=== PATIENT | male | born 1955 | race Caucasian/White ===

== ENCOUNTER 2019-01-28 17:53 | Inpatient (IN) | payer BC ==
[~2019-01-28] VITALS: Ht 193 cm; Wt 86.2 kg
[~2019-01-28 17:53] MED LIST: EXTRA STRENGTH500 MG
[2019-01-28] MEDS ORDERED: LISI20 PO (18:02)
[2019-01-28 18:33] LABS: BASOPHILS ABSOLUTE AUTO 0.01 K/mm3 (0.00-0.23); BASOPHILS PERCENT AUTO 0 % (0-2); EOSINOPHILS ABSOLUTE AUTO 0.09 K/mm3 (0.00-0.68); EOSINOPHILS PERCENT AUTO 1 % (0-6); Hematocrit 35.8 % (37.0-53.0); Hemoglobin 11.3 g/dL (13.5-17.5); IMMATURE GRAN ABSOLUTE AUTO 0.04 K/mm3 (0.00-0.10); IMMATURE GRAN PERCENT AUTO 1 % (0-1); LYMPHOCYTES ABSOLUTE AUTO 1.11 K/mm3 (0.84-5.20); LYMPHOCYTES PERCENT AUTO 15 % (21-46); MONOCYTES ABSOLUTE AUTO 0.78 K/mm3 (0.16-1.47); MONOCYTES PERCENT AUTO 11 % (4-13); Mean Corpuscular HGB 20.2 pg (26.0-34.0); Mean Corpuscular HGB Conc 31.6 g/dL (31.5-36.5); Mean Corpuscular Volume 64 fL (80-100); Mean Platelet Volume 9.7 fL (9.1-12.4); NEUTROPHILS ABSOLUTE AUTO 5.25 K/mm3 (1.96-9.15); NEUTROPHILS PERCENT AUTO 72 % (41-73); Platelet Count 317 K/mm3 (150-400); RDW Coefficient Variation 14.2 % (11.7-14.2); RDW Standard Deviation 31.6 fL (35.1-46.3); White Blood Cell Count 7.28 K/mm3 (4.00-11.30)
[2019-01-28 18:38] LABS: Source, Urine Clean Catch
[2019-01-28 18:41] LABS: Blood, Urine 2+ (Neg); Glucose Qualitative, Urine Neg (Neg); Ketones, Urine 2+ (Neg); Leukocyte Esterase, Urine 1+ (Neg); Nitrite, Urine Neg (Neg); Protein, Urine 3+ (Neg); Urobilinogen, Urine 2+ (Normal)
[2019-01-28 18:46] LABS: Bilirubin, Urine 1+ (Neg)
[2019-01-28 18:47] LABS: Appearance, Urine Clear (Clear); Color, Urine Yellow (P-Yellow)
[2019-01-28 18:50] LABS: Hyaline Casts 0-2 /lpf (0-2)
[2019-01-28 18:51] LABS: Bacteria Few /hpf; Mucus Mod (0-Heavy); Squamous Epithelial Cells Few /hpf (Few)
[2019-01-28 18:57] LABS: Alanine Aminotransfer (ALT/SGP 38 U/L (12-78); Albumin, Blood 3.7 g/dL (3.4-5.0); Albumin/Globulin Ratio 0.8 (0.8-1.8); Alk Phos 186 U/L (50-136); Anion Gap 13 mmol/L (6-16); Aspartate Aminotrans (AST/SGOT 42 U/L (12-37); Bilirubin, Total 0.7 mg/dL (0.1-1.0); Blood Urea Nitrogen 13 mg/dL (8-24); CO2, Blood 20 mmol/L (21-32); Calcium, Blood 8.9 mg/dL (8.5-10.1); Chloride, Blood 98 mmol/L (98-108); Creatinine, Blood 0.81 mg/dL (0.60-1.20); Globulin, Blood 4.5 g/dL (2.2-4.0); Glomerular Filtration Rate >60 (60-); Glucose, Blood 103 mg/dL (70-99); Potassium, Blood 3.7 mmol/L (3.5-5.5); Sodium, Blood 131 mmol/L (136-145); Total Protein, Blood 8.2 g/dL (6.4-8.2)
[2019-01-28] MEDS ORDERED: MELATONIN10 M2 PO (20:10)
[2019-01-28] MEDS ORDERED: CETI5 PO (23:17)
--- NOTE | 2019-01-29 04:17 | NUR ---
SHIFT SUMMARY. NO ACUTE EVENTS OVERNIGHT. VSS. PATIENT SBA TO BATHROOM, HELP WITH IV POLE AND LINE. PATIENT VERY PLEASANT AND COPING WELL WITH HOSPITAL VISIT AT THIS TIME. PATIENT INTERESTED IN SPIRITUAL CARE VISIT.
[2019-01-29 05:01] LABS: BASOPHILS ABSOLUTE AUTO 0.01 K/mm3 (0.00-0.23); BASOPHILS PERCENT AUTO 0 % (0-2); EOSINOPHILS PERCENT AUTO 2 % (0-6); Hematocrit 34.5 % (37.0-53.0); Hemoglobin 10.6 g/dL (13.5-17.5); IMMATURE GRAN ABSOLUTE AUTO 0.04 K/mm3 (0.00-0.10); IMMATURE GRAN PERCENT AUTO 1 % (0-1); LYMPHOCYTES ABSOLUTE AUTO 0.96 K/mm3 (0.84-5.20); LYMPHOCYTES PERCENT AUTO 16 % (21-46); MONOCYTES ABSOLUTE AUTO 0.66 K/mm3 (0.16-1.47); MONOCYTES PERCENT AUTO 11 % (4-13); Mean Corpuscular HGB 19.5 pg (26.0-34.0); Mean Corpuscular HGB Conc 30.7 g/dL (31.5-36.5); Mean Corpuscular Volume 64 fL (80-100); Mean Platelet Volume 9.3 fL (9.1-12.4); NEUTROPHILS ABSOLUTE AUTO 4.09 K/mm3 (1.96-9.15); NEUTROPHILS PERCENT AUTO 70 % (41-73); Platelet Count 233 K/mm3 (150-400); RDW Coefficient Variation 14.4 % (11.7-14.2); RDW Standard Deviation 31.2 fL (35.1-46.3); Red Blood Cell Count 5.43 M/mm3 (4.30-5.90); White Blood Cell Count 5.86 K/mm3 (4.00-11.30)
[2019-01-29 05:30] LABS: Alanine Aminotransfer (ALT/SGP 34 U/L (12-78); Albumin, Blood 3.2 g/dL (3.4-5.0); Albumin/Globulin Ratio 0.8 (0.8-1.8); Alk Phos 158 U/L (50-136); Anion Gap 8 mmol/L (6-16); Aspartate Aminotrans (AST/SGOT 35 U/L (12-37); Bilirubin, Total 0.7 mg/dL (0.1-1.0); Blood Urea Nitrogen 15 mg/dL (8-24); Bun/Creatinine Ratio 19.6 (12.0-20.0); CO2, Blood 25 mmol/L (21-32); Calcium, Blood 8.6 mg/dL (8.5-10.1); Chloride, Blood 98 mmol/L (98-108); Creatinine, Blood 0.77 mg/dL (0.60-1.20); Globulin, Blood 4.1 g/dL (2.2-4.0); Glomerular Filtration Rate >60 (60-); Glucose, Blood 99 mg/dL (70-99); Potassium, Blood 3.4 mmol/L (3.5-5.5); Sodium, Blood 131 mmol/L (136-145); Total Protein, Blood 7.3 g/dL (6.4-8.2)
--- NOTE | 2019-01-29 07:27 | NUR ---
ASSUMED CARE OF PT- BEDSIDE REPORT COMPLETED WITH NIGHT ROEL DELCID. PT ALERT AND ORIENTED AND INDEPENDENT. 20G IV RUNNING NS AT 100ML/HR. PER REPORT FROM PT HE USUALLY HAS A BM DAILY HAS NOT HAD ONE NOW IN NEARLY TWO WEEKS. ASKED ABOUT EATING AND THE PT STATED "OH, I STOPPED THAT." PER REPORT FROM NIGHT ROEL DELCID PT HAD A CT OF THE ABDOMEN THAT SHOWS MULTIPLE MASSES AND OBSTRUCTION. MALIGNANCY HAS NOT YET BEEN DETERMINED. PT HAS A MEDICAL Hx OF HTN. NO OTHER Hx PER REPORT.
[2019-01-29 08:58] LABS: Percent Saturation 12.5 % (20.0-50.0)
--- NOTE | 2019-01-29 13:27 | NUR ---
Initial Pal Care visit: Introduced myself to pt and the purpose of my visit for support and to answer any questions or discuss concerns he may have. Pt is a 62 yr old male with minimal medical hx per his account. Dr Toth is his PCP and he had been in contact with him regarding recent s/s and hx of unintentional 30# wt loss over the past several months, difficulty swallowing and no BM x 2 weeks. He is undergoing workup at this time with an upper endoscopy and possibly biopsies this afternoon. He is currently NPO but states, I don't feel like eating and haven't had anything for a week. "I thought I was constipated and that I was having an allergic reaction with my throat swelling". When asked what his understanding of his current condition was, he stated "the Dr's seem more worried about this than I do but maybe it just hasn't sunk in and maybe it never will". Agustina shared that his SO of 32 years, Brea is unaware of his new cancer dx. He states she only knows that I have a blockage but thinks it's going to be removed and then I'll go home. Brea left the ER before pt was given results of studies done and the Drs' impression last night. She does not drive at night any longer and left before it got dark. Pt wishes to discuss the findings with her in person, by himself this evening after his upper endoscopy. I offered to be present for this conversation and I offered to have a news videographer be present. Pt declined both at this time but said he thought it would be good to speak with a news videographer at some point. I spoke to enginehouse brakeman re: Hopper Attendant visit if they are in the building this weekend for another call. Time spent listening to pt process and talk himself thru some of the information he has been provided by his drs. We discussed advanced directives and he inquired about those as he remembers they were mentioned in the ER. I told him we would be available to help him with that later his stay. He confirms that Brea Hurd is his only surrogate decision maker. They were never but have been together for 32 years. He states he has no living parents or children. He says he has siblings but that they are not close and his is not in regular contact with them. He mentioned not having a will and thought maybe he should Brea to be sure she had his home if something happened to him. I recommended that he consult an title attorney after his hospitalization to sort out the things that were very important to him to have documented and/or gifted. I planned with pt to meet again tomorrow. He was concerned that Dr Randolph didn't know that his SO had not been told of his new serious dx and asked me to pass it on to him so that he would be the one to tell her this tina. t/c to Dr RANDOLPH with that info. He was aware as he had discussed it with pt this afternoon already but pt forgot. Pt exhibiting signs of distress and anxiety r/t new potentially catastrophic dx. I held his hand for a bit when I returned and encouraged him to await all the information from his Drs and to make decisions and days one at a time. Pt does appear to be processing the gravity of his s/s.
--- NOTE | 2019-01-29 13:55 | NUR ---
01/29/19 1355 Everett Resendiz PATIENT DETERMINED TO BE ASA APPROPRIATE FOR PROPOFOL SEDATION PRIOR TO START OF PROCEDURE BY . 3-LEAD EKG REVIEWED WITH PHYSICIAN PRIOR TO START OF PROCEDURE.PATIENT CONFIRMS NPO STATUS AND AGREES WITH SCHEDULED PROCEDURE.History, Chart, Medications and Allergies reviewed before start of procedure.MONITOR INTACT WITH CONTINUOUS PULSE OXIMETRY AND INTERMITTENT BP.O2 VIA N/C INTACT THROUGHOUT SEDATION/PROCEDURE.Bite Block Placed
--- NOTE | 2019-01-29 18:03 | NUR ---
SHIFT SUMMARY- PT WAS SEEN BY DR LIMA TODAY AND TAKEN IN FOR UPPER ENDOSCOPY. PER DR LIMA PT HAS ESOPHAGEAL CANCER; BIOPSYS WERE SENT TO THE LAB FOR CONFIRMATION. DR LIMA INCREASED THE PT DIET TO FULL LIQUID, WANTS TO SEE IF THE PT CAN EAT FOOD BEFORE DISCHARGE, IF THE PT IS TAKING PO FOOD THEN HE CAN FOLLOW UP WITH ONCOLOGY OUT PT. PT HAD A SMALL YELLOW SOFT FORMED STOOL THIS EVENING AND IS PASSING LARGE AMOUNTS OF FLATUS. PT HAS NO CURRENT C/O PAIN. PT WAS GIVEN 2100 DOSE OF LISINOPRIL, PER DR PARRISH, EARLY D/T HIGH BLOOD PRESSURES. PARAMETERS FOR PRN HYDRALAZINE. PT ALERT AND ORIENTED AND INDEPENDENT IN THE ROOM, CALLS FOR ASSISTANCE WITH THE IV PUMP SOMETIMES WHEN AMBULATING TO THE BATHROOM.
--- NOTE | 2019-01-29 18:18 | NUR ---
[facility] CARE VISIT - Per pt's request, I returned today to assist him in speaking with his SO, Brea re: his current status and the information provided to him by his Drs in the ER, hospital and Dr Randolph after his upper endoscopy/biopsy today. Pt asked that I explain to Brea that he has cancer. Brea expressed her growing fear of this over the past three weeks. Pt has been allowed a full liquid diet after procedure but has not had anything other than some fluids and laxative this afternoon. Pt has no appetite and still feels difficulty with swallowing. He is awaiting biopsy results and consultation with an oncologist. He understood from Dr Randolph that his cancer is not curable but that tx may improve his s/s, quality of life and give him some time. Pt experiencing cramping abdominal pain and was up at least twice during our visit to go to the BR. He reports having three small bms this afternoon/tina. Discussed s/s management with pt and Brea, including bowel program, pain management and the importance of reporting his s/s to his health care providers before they become severe. We discussed AD with Brea and they would like me to bring forms and blank [place] Will forms to them, which I will do tomorrow. Pt has recently retired after working at [employer] for 42+ years. He again confirms that if for any reason he cannot express his wishes, Brea would be his surrogate decision maker. Brea expresses that "of course he will do treatment" and "they have to put a feeding tube in" while pt is much less certain of the path he will take until after he has more information from the biopsies and an oncologist. They expressed a preference for Dr Woodson if an oncology referral is to be made. Time spent listening and answering questions. Encouraged him to try PO intake and he expressed that he would like to try some broth and jello. RN and TAXATION INSPECTOR informed and TAXATION INSPECTOR to take those to him. Planned with Agustina and Brae to meet with them again tomorrow. He expects he may be discharged home tomorrow per his conversation with Dr Randolph so I will come by in the am. Pt appears slightly anxious. Brea describes him as a worrier. Both were appropriately tearful at times, grappling with this new, life altering information.
[2019-01-30 04:54] LABS: Hematocrit 32.3 % (37.0-53.0); Hemoglobin 10.1 g/dL (13.5-17.5); Mean Corpuscular HGB Conc 31.3 g/dL (31.5-36.5); Mean Corpuscular Volume 64 fL (80-100); Mean Platelet Volume 10.2 fL (9.1-12.4); Platelet Count 237 K/mm3 (150-400); RDW Coefficient Variation 14.3 % (11.7-14.2); RDW Standard Deviation 31.9 fL (35.1-46.3); Red Blood Cell Count 5.05 M/mm3 (4.30-5.90); White Blood Cell Count 5.64 K/mm3 (4.00-11.30)
[2019-01-30 05:27] LABS: Anion Gap 7 mmol/L (6-16); Blood Urea Nitrogen 14 mg/dL (8-24); Bun/Creatinine Ratio 21.6 (12.0-20.0); CO2, Blood 24 mmol/L (21-32); Calcium, Blood 8.2 mg/dL (8.5-10.1); Chloride, Blood 103 mmol/L (98-108); Creatinine, Blood 0.65 mg/dL (0.60-1.20); Glomerular Filtration Rate >60 (60-); Glucose, Blood 87 mg/dL (70-99); Sodium, Blood 134 mmol/L (136-145)
--- NOTE | 2019-01-30 08:43 | NUR ---
ASSUMED CARE OF PT- PT ALERT AND ORIENTED THIS MORNING. PER REPORT HE HAD AN EPISODE OF CONFUSION LAST NIGHT WHERE HE THOUGHT HIS IV PUMP WAS FOLLOWING HIM INTO THE BATHROOM, HE WAS PULLING IT BY THE IV LINE. PER REPORT THE IV CLIP WAS BROKEN AND WAS LEAKING IVF. RN CHANGED THE LINE, CALMED AND REORIENTED THE PT. PT REPORTS NOT REMEMBERING THE INCIDENT. PT THEN STATED THIS HAS BEEN HAPPENING RECENTLY AT HOME. PT DESCRIBED GOING TO BED AND WAKING UP, FULLY DRESSED, WALKING FROM HIS LIVINGROOM TOWARDS HIS BEDROOM. PT STATED HE WAS SUPRISED WHEN HE REALIZED HE WAS NOT IN BED, AND MORE SUPRISED WHEN HE REALIZED HE WAS FULLY DRESSED. WILL DISCUSS WITH DR PARRISH, PT MAY NEED A CT HEAD.
--- NOTE | 2019-01-30 09:20 | NUR ---
PAL CARE FOLLOW UP VISIT. Pt awake, sitting with hob elevated in bed. Reports he has had a number of sm bms and loose bms and after a suppository was given last night one "decent" BM. He is feeling less pressure in abd but still uncomfortable. He is passing gas but feels he needs to get a lot more stool out. He has eaten more than 50% of a full liq breakfast and is "forcing himself" despite poor apetite and no desire to eat. We discussed some nonpharmacological measures for comfort and relief of abd cramping and pain. Pt is worried that if he needs opiod pain medication in the future that it will "plug bowels up" We discussed measures to alleviate and stay on top of bowel regime and pain. I delivered materials pt and SO Brea had requested of me and reviewed with pt, FERMINA for healthcare form, durable power of patent attorney form from [facility] and [place] will forms. Pt states he plans to consult an patent attorney to discuss how to proceed with his assets, social security etc. Pt given my card and encouraged to call [facility] for an outpatient enma if he needs help completing advanced directive. Also encouraged pt to have me paged if he or Brea wanted to discuss anything else today.
--- NOTE | 2019-01-30 19:47 | NUR ---
SHIFT SUMMARY- PT HAS HAD NO ACUTE CHANGES T/O THE SHIFT. PLAN IS TO CONTINUE TO MONITOR THE PT. PT RECIEVED TWO PRUNE JUICE BUTTER AND APPLE JUICE MIXTURES WELL ALL BOWEL MEDS AVAILABLE IN [facility], SEE [facility] FOR DETAILS. PT ALERT AND ORIENTED AND INDEPENDENT. PT HAS HAD RECENT EPISODES OF WHAT HE CALLS SLEEP WALKING, RECOMENDED IN BEDSIDE REPORT THAT PT HAVE A BED ALARM SET FOR SAFETY WHILE HE IS SLEEPING. PT S.O. LEFT THE HOSPITAL AT CHANGE OF SHIFT, SHE AND THE PT HAVE DECIDED TO GET BEFORE THE PT GETS ANY MORE SICK. SHE WAS TEARFUL WHEN SHE LEFT.
--- NOTE | 2019-01-31 04:34 | NUR ---
SHIFT SUMMARY PT. COOPERATIVE WITH CARE, NO ACUTE CHANGES OVERNIGHT. UP TO THE BATHROOM X2 WITH ASSISTANCE. ASLEEP THE REST OF THE SHIFT. NO APPARENT DISTRESS NOTED. CALL LIGHT WITHIN REACH AND SIDE RAILS UP X2.
--- NOTE | 2019-01-31 16:16 | NUR ---
[facility] Spiritual Care initial visit: Mr. Deluna was alone in room and welcoming of conversation/encouragement. He tells me he is not worried B/C he is waiting to get all the information. "I don't really see the point of worrying until I know what's going on." His biggest concern is for his SO, Brea. They have been together for more than 30 years, and he wants to make sure she's taken care-of if he passes. Brea has the Advanced Directive paperwork at home and they are planning to complete it. He wants Brea to be his MPOA. I provided theraputic listening and emotional affirmation. He had some great questions about things to ask oncologist. I made several reccomendations that he agreed were good ideas. Mr. Deluna is non-sabianism, but responded well to gentle encouragement. I will remain available.
--- NOTE | 2019-01-31 20:01 | NUR ---
SHIFT SUMMARY- PT REQUESTED TO SPEAK TO THE DR. UNABLE TO RETURN TO THE BEDSIDE. PT STATED AT SHIFT CHANGE HE WANTED TO GO HOME. SPOKE TO DR PARRISH ABOUT THIS. PT DECIDED TO STAY ANOTHER NIGHT SO HE CAN TAKE MORE BOWEL MEDS AND TALK TO DR PARRISH IN THE MORNING. DR PARRISH AWARE. PT HAS HAD SEVERAL SMALL EPISODES OF LOOSE STOOL, "NOTHING SUBSTANTIAL." PT ALERT AND ORIENTED AND INDEPENDENT, CALL LIGHT IN REACH, SO AT BEDSIDE.
--- NOTE | 2019-02-01 03:41 | NUR ---
SHIFT SUMMARY PT. CONTINUES ON BOWEL REGIMEN, PT. STATES HAVING SEVERAL SMALL LIQUIDS BUT NO STOOLS. RESTED ON/OFF T/O SHIFT. A&O, INDEPENDENT WITH BRP. CALL LIGHT WITHIN REACH. WILL CONT TO MONITOR.
--- NOTE | 2019-02-01 11:56 | NUR ---
MIRALAX, SENNA, BROWN COW, AND ENEMA GIVEN THIS AM. PT REPORTS BROWN DIARRHEA POST ENEMA. PT REPORTS HE DOES STILL WANT TO GO HOME AND REQUESTING I LET DR PARRISH KNOW. DR PARRISH NOTIFIED. ENEMA GIVEN THIS AM, NO SOLID STOOL FELT UPON INSERTING ENEMA.
--- NOTE | 2019-02-01 14:22 | NUR ---
Palliative care follow up visit. Attempted to see pt several times today. Our [facility] volunteer visited him this am and he is currently visiting with his brother, who he introduced me to. He has previously stated he was not close to his siblings so I did not want to interupt his visit for long. Brief social visit made. Pt eagerly anticipating d/c home today. He is happy about that. Reminded pt he has our contact information and encouraged him to call any time. He hopes to see an oncologist this week and has requested Dr Woodson, who his SO Brea likes. His RN is aware of that as we discussed it this am and pt reports he spoke to her about that also. Pt appreciative of the care he's received and continues to seek answers and process the new dx of cancer and what that will mean for his life.
[2019-02-01] MEDS ORDERED: Senna Plus Tab1 EACH PO (14:37)
[2019-02-01] MEDS ORDERED: GABA300 PO (14:37)
--- NOTE | 2019-02-01 15:08 | NUR ---
FOLLOW UP APPOINTMENTS MADE WITH DR RUBIO AND DR AKHTAR. D/C ORDERS REVIEWED WITH PT. IV DC'D INTACT. PT AWAITING RIDE HOME AT THIS TIME.
--- NOTE | 2019-02-01 15:20 | NUR ---
PT DC'D HOME AT [id number].
[2019-02-14] MEDS ORDERED: Norco 5-325 Ta1 EACH PO (13:23)
== END 2019-02-01 15:27 | disposition home or self-care (01) | DRG 375 ==
LOC: ER 17:53 → MEDS 21:05 → ENPENDDIS 02-01 14:06 → MEDS 02-01 15:27
PROVIDERS: Internal Medicine; Internal Medicine Gastroenterology; Physician Assistant; ADMIT Internal Medicine
PROC: 0DB98ZX Excision of Duodenum, Via Natural or Artificial Opening Endoscopic, Diagnostic (ICD-10-PCS; 2019-01-29)
PROC: 0DB68ZX Excision of Stomach, Via Natural or Artificial Opening Endoscopic, Diagnostic (ICD-10-PCS; 2019-01-29)
PROC: 0DB18ZX Excision of Upper Esophagus, Via Natural or Artificial Opening Endoscopic, Diagnostic (ICD-10-PCS; principal; 2019-01-29 14:00)
DX: C15.3 Malignant neoplasm of upper third of esophagus (principal); C79.72 Secondary malignant neoplasm of left adrenal gland; K59.00 Constipation, unspecified; K22.9 Disease of esophagus, unspecified; D63.0 Anemia in neoplastic disease; I10 Essential (primary) hypertension; E87.6 Hypokalemia; R13.10 Dysphagia, unspecified; K25.9 Gastric ulcer, unspecified as acute or chronic, without hemorrhage or perforation; K26.9 Duodenal ulcer, unspecified as acute or chronic, without hemorrhage or perforation
CPT/HCPCS: 36415; 74176; 80048; 80053; 81001; 82728; 83540; 83550; 83690; 85025; 85027; 87086; 88305; 88342; 88360; 99285-25; J1644; J2250; J2704; J7030; J7120

== ENCOUNTER 2019-02-16 07:07 | Day surgery (SDC) | payer BC ==
[~2019-02-16] VITALS: Ht 195.6 cm; Wt 83.7 kg
[~2019-02-16 07:07] MED LIST changes: +CETI5 PO; +GABA300 PO; +LISI20 PO; +MELATONIN10 M2 PO; +Norco 5-325 Ta1 EACH PO; +Senna Plus Tab1 EACH PO
--- NOTE | 2019-02-16 08:00 | NUR ---
History, Chart, Medications and Allergies reviewed before start of procedure. History, Chart, Medications and Allergies reviewed before start of procedure. Patient confirms NPO status and agrees with scheduled surgery. Patient reports completing Chlorhexadine shower X2 prior to admission to hospital. Pre-Op teaching done. Pt verbalizes understanding.
--- NOTE | 2019-02-16 10:53 | NUR ---
Patient up to Ambulate independently. Gait steady. Discharge instructions reviewed with patient. Patient verbalizes understanding. Copy given to patient to take home. Patient States Post-Procedure ride home has been arranged. Discharged via wheelchair to private car for ride home. MEDIPORT SUPPLIES SENT WITH PT. TOLERATING PO AT TIME OF DC
== END 2019-02-16 22:55 | disposition home or self-care (01) ==
LOC: ORSCMMR 07:07 → ORD 08:30 → ORSCMMR 08:30
PROVIDERS: Surgery
PROC: 05H533Z Insertion of Infusion Device into Right Subclavian Vein, Percutaneous Approach (ICD-10-PCS; principal; 2019-02-16 08:30)
PROC: B5161ZA Fluoroscopy of Right Subclavian Vein using Low Osmolar Contrast, Guidance (ICD-10-PCS; principal; 2019-02-16 08:30)
DX: C15.9 Malignant neoplasm of esophagus, unspecified (principal); I10 Essential (primary) hypertension; Z79.899 Other long term (current) drug therapy
CPT/HCPCS: 77001; C1788; J0690; J1100; J1642; J2250; J2405; J2704; J3010; J7030; J7120

== ENCOUNTER 2019-08-10 07:06 | Day surgery (SDC) | payer BC ==
[~2019-08-10] VITALS: Ht 193 cm; Wt 85.1 kg
[2019-08-10] MEDS ORDERED: Norco 10-325 T1 EACH (07:56)
--- NOTE | 2019-08-10 08:55 | NUR ---
08/10/[address] AWARE OF PREOP BP'S. NO ORDERS
== END 2019-08-10 09:22 | disposition home or self-care (01) ==
LOC: ORSCSDS 07:06
PROVIDERS: Internal Medicine Gastroenterology
PROC: 0DB58ZX Excision of Esophagus, Via Natural or Artificial Opening Endoscopic, Diagnostic (ICD-10-PCS; principal; 2019-08-10 08:45)
DX: C15.5 Malignant neoplasm of lower third of esophagus (principal); K44.9 Diaphragmatic hernia without obstruction or gangrene; I10 Essential (primary) hypertension; Z79.899 Other long term (current) drug therapy
CPT/HCPCS: 88305; 88360; J0330; J0461; J2405; J2704; J7120

== ENCOUNTER 2019-12-08 07:12 | Emergency (ER) | payer BC ==
[~2019-12-08] VITALS: Ht 193 cm; Wt 80.7 kg
[~2019-12-08 07:12] MED LIST changes: +Norco 10-325 T1 EACH
[2019-12-08] MEDS ORDERED: ESCI20 PO (07:54)
[2019-12-08] MEDS ORDERED: PRINIVIL10 MG PO (07:54)
[2019-12-08] MEDS ORDERED: Hydrocodone-Ap1 EA20 PO (07:54)
[2019-12-08 08:13] LABS: Source, Urine Clean Catch
[2019-12-08 08:16] LABS: Bilirubin, Urine Neg (Neg); Blood, Urine 1+ (Neg); Glucose Qualitative, Urine Neg (Neg); Ketones, Urine Neg (Neg); Leukocyte Esterase, Urine Neg (Neg); Nitrite, Urine Neg (Neg); Protein, Urine 1+ (Neg); Specific Gravity, Urine 1.015 (1.003-1.022); Urobilinogen, Urine NORM (Normal)
[2019-12-08 08:19] LABS: Hemoglobin 10.3 g/dL (13.5-17.5); Mean Corpuscular HGB Conc 31.2 g/dL (31.5-36.5); Mean Corpuscular Volume 67 fL (80-100); Platelet Count 198 K/mm3 (150-400); RDW Coefficient Variation 17.3 % (11.7-14.2); RDW Standard Deviation 40.4 fL (35.1-46.3); Red Blood Cell Count 4.91 M/mm3 (4.30-5.90)
[2019-12-08 08:24] LABS: Appearance, Urine Clear (Clear); Color, Urine Yellow (P-Yellow)
[2019-12-08 08:27] LABS: Bacteria Few /hpf; Red Blood Cells, Urine 0-2 /hpf (0-2); Squamous Epithelial Cells Rare /hpf (Few)
[2019-12-08 08:36] LABS: White Blood Cell Count 60.02 K/mm3 (4.00-11.30)
[2019-12-08 08:39] LABS: Alanine Aminotransfer (ALT/SGP 20 U/L (12-78); Albumin, Blood 3.8 g/dL (3.4-5.0); Alk Phos 146 U/L (50-136); Anion Gap 9 mmol/L (6-16); Aspartate Aminotrans (AST/SGOT 16 U/L (12-37); Bilirubin, Total 1.2 mg/dL (0.1-1.0); Blood Urea Nitrogen 10 mg/dL (8-24); Bun/Creatinine Ratio 14.5 (12.0-20.0); CO2, Blood 22 mmol/L (21-32); Calcium, Blood 8.2 mg/dL (8.5-10.1); Chloride, Blood 105 mmol/L (98-108); Creatinine, Blood 0.69 mg/dL (0.60-1.20); Glomerular Filtration Rate >60 (60-); Glucose, Blood 89 mg/dL (70-99); Potassium, Blood 3.3 mmol/L (3.5-5.5); Sodium, Blood 136 mmol/L (136-145); Total Protein, Blood 7.8 g/dL (6.4-8.2)
[2019-12-08 08:41] LABS: BAND PERCENT MAN 5 % (0-8); BASOPHILS PERCENT MAN 0 % (0-2); EOSINOPHILS PERCENT MAN 0 % (0-6); LYMPHOCYTES PERCENT MAN 2 % (21-46); METAMYELOCYTE PERCENT MAN 1 % (0-0); MONOCYTES PERCENT MAN 1 % (4-13); NEUTROPHILS ABSOLUTE MAN 57.61 K/mm3 (1.96-9.15); SEG NEUTROPHILS PERCENT MAN 91 % (41-73); TOTAL CELLS COUNTED 100
[2019-12-08] MEDS ORDERED: SIME80CH PO (12:39)
== END 2019-12-08 13:08 | disposition home or self-care (01) ==
LOC: ER 07:12
PROVIDERS: Emergency Medicine
DX: K52.9 Noninfective gastroenteritis and colitis, unspecified (principal); D72.829 Elevated white blood cell count, unspecified; Z79.899 Other long term (current) drug therapy; Z85.01 Personal history of malignant neoplasm of esophagus
CPT/HCPCS: 36415; 74018; 74177; 80053; 81001; 83605; 85025; 99284-25; Q9967

== ENCOUNTER 2020-05-01 14:11 | Emergency (ER) | payer BC ==
[~2020-05-01] VITALS: Ht 193 cm; Wt 59.0 kg
[~2020-05-01 14:11] MED LIST changes: +ESCI20 PO; +Hydrocodone-Ap1 EA20 PO; +PRINIVIL10 MG PO; +SIME80CH PO
[2020-05-01 15:33] LABS: BASOPHILS PERCENT AUTO 0 % (0-2); EOSINOPHILS PERCENT AUTO 0 % (0-6); Hematocrit 30.1 % (37.0-53.0); Hemoglobin 9.1 g/dL (13.5-17.5); IMMATURE GRAN ABSOLUTE AUTO 0.04 K/mm3 (0.00-0.10); IMMATURE GRAN PERCENT AUTO 1 % (0-1); LYMPHOCYTES ABSOLUTE AUTO 0.36 K/mm3 (0.84-5.20); LYMPHOCYTES PERCENT AUTO 8 % (21-46); MONOCYTES ABSOLUTE AUTO 0.33 K/mm3 (0.16-1.47); MONOCYTES PERCENT AUTO 7 % (4-13); Mean Corpuscular HGB 18.7 pg (26.0-34.0); Mean Corpuscular HGB Conc 30.2 g/dL (31.5-36.5); Mean Corpuscular Volume 62 fL (80-100); NEUTROPHILS ABSOLUTE AUTO 3.93 K/mm3 (1.96-9.15); NEUTROPHILS PERCENT AUTO 84 % (41-73); Platelet Count 154 K/mm3 (150-400); RDW Coefficient Variation 20.5 % (11.7-14.2); RDW Standard Deviation 43.4 fL (35.1-46.3); Red Blood Cell Count 4.86 M/mm3 (4.30-5.90); White Blood Cell Count 4.66 K/mm3 (4.00-11.30)
[2020-05-01 15:53] LABS: Alanine Aminotransfer (ALT/SGP 24 U/L (12-78); Albumin, Blood 3.1 g/dL (3.4-5.0); Albumin/Globulin Ratio 0.7 (0.8-1.8); Alk Phos 173 U/L (50-136); Anion Gap 9 mmol/L (6-16); Aspartate Aminotrans (AST/SGOT 37 U/L (12-37); Bilirubin, Total 0.7 mg/dL (0.1-1.0); Blood Urea Nitrogen 37 mg/dL (8-24); Bun/Creatinine Ratio 32.2 (12.0-20.0); CO2, Blood 23 mmol/L (21-32); Calcium, Blood 8.7 mg/dL (8.5-10.1); Chloride, Blood 104 mmol/L (98-108); Creatinine, Blood 1.15 mg/dL (0.60-1.20); Globulin, Blood 4.7 g/dL (2.2-4.0); Glomerular Filtration Rate >60 (60-); Glucose, Blood 108 mg/dL (70-99); Potassium, Blood 4.4 mmol/L (3.5-5.5); Sodium, Blood 136 mmol/L (136-145); Total Protein, Blood 7.8 g/dL (6.4-8.2)
[2020-05-01] MEDS ORDERED: MS Contin15 MG PO (22:23)
[2020-05-01] MEDS ORDERED: DEXA4 PO (22:23)
[2020-05-01] MEDS ORDERED: METO10 PO (22:25)
[2020-05-01] MEDS ORDERED: TRAZ50 PO (22:26)
[2020-05-01] MEDS ORDERED: ZOFRAN8 MG PO (22:26)
[2020-05-01] MEDS ORDERED: Omeprazole20 M1 PO (22:27)
[2020-05-01] MEDS ORDERED: TAMSULOSIN HCL0.4 M1 PO (22:27)
[2020-05-01] MEDS ORDERED: OXYC10ER PO (22:29)
== END 2020-05-01 22:15 | disposition short-term general hospital (02) ==
LOC: ER 14:11
PROVIDERS: Physician Assistant
DX: R33.9 Retention of urine, unspecified (principal); M54.5 Low back pain; R10.30 Lower abdominal pain, unspecified; R20.0 Anesthesia of skin; E86.0 Dehydration; Z79.899 Other long term (current) drug therapy; Z20.828 Contact with and (suspected) exposure to other viral communicable diseases
CPT/HCPCS: 36415; 51702; 74177; 80053; 85025; 96361; 96374-59; 99285-25; J1170; J7120; Q9967; U0003